=== PATIENT | female | born 1950 ===

== ENCOUNTER 2016-12-21 20:00 | Emergency (ER) | payer MEDICARE, MEDICAID ==
[~2016-12-21] VITALS: Ht 167.6 cm; Wt 86.2 kg
--- NOTE | 2016-12-21 20:52 | NUR ---
PT STATES FALL HAPPENED 3 DAYS AGO, STATES TODAY KNEE AND LEG BEGAN TO SWELL, SLIPPED DOWN STAIRS, ABOUT 10 STAIRS, STATES SHE LANDED ON RIGHT SIDE, C/O PAIN ON RIGHT FOREARM AND RIGHT THIGH....no resp distress noted or reported upon assessment... md at bedside...
--- NOTE | 2016-12-21 21:25 | NUR ---
Patient discharged to home in stable conditon. Written and verbal after care instructions given. Patient verbalizes understanding of instructions. pt walked out of ER unassisted with belongings at side...
[2016-12-21 21:27] VITALS: BP 141/83
== END 2016-12-21 21:37 | disposition home or self-care (01) ==
LOC: ER 20:01
DX: M25.461 Effusion, right knee (principal); I10 Essential (primary) hypertension; M19.90 Unspecified osteoarthritis, unspecified site; H40.9 Unspecified glaucoma
CPT/HCPCS: A4663